=== PATIENT | male | born 1955 | race Caucasian/White ===

== ENCOUNTER 2021-03-15 06:08 | Observation (INO) ==
--- NOTE | 2021-03-02 09:08 | PAT Medication Instructions ---
Medication Instructions Date of Service March 02, 2021 Home Medications Medication Instructions Recorded epinephrine 0.3 mg/0.3 mL 0.3 mg IM Q10M PRN #2 ea 02/23/20 injection, auto-injector buspirone 10 mg tablet 10 mg PO TID #90 tab 12/27/20 montelukast 10 mg tablet 10 mg PO QPM #30 tab 01/04/21 (Singulair) levalbuterol HCl 1.25 mg/3 mL 1.25 mg INH Q4H PRN #100 vial 02/09/21 solution for nebulization albuterol sulfate 90 mcg/actuation breath activated powder inhaler 2 puffs INH Q4H PRN atorvastatin 20 mg tablet 20 mg PO QPM lamotrigine 100 mg tablet (Lamictal) 100 mg PO HS lamotrigine 150 mg tablet (Lamictal) 150 mg PO QAM sildenafil 50 mg tablet (Viagra) 50 mg PO DAILY PRN tiotropium bromide 18 mcg capsule with inhalation device (Spiriva with HandiHaler) 1 cap INH QPM warfarin 5 mg tablet 5 mg PO QPM lamotrigine 25 mg tablet (Lamictal) 25 mg PO HS trazodone 50 mg tablet 50 mg PO HS PRN epinephrine 0.3 mg/0.3 mL injection, auto-injector 0.3 mg IM Q10M PRN buspirone 10 mg tablet 10 mg PO TID montelukast 10 mg tablet (Singulair) 10 mg PO QPM levalbuterol HCl 1.25 mg/3 mL solution for nebulization 1.25 mg INH Q4H PRN B.breve-L.acid-L.rham-S. thermophilus 3 billion cell chewable tablet 0.5 tab PO QAM cholecalciferol (vitamin D3) 10 mcg (400 unit) tablet (Vitamin D3) 1,600 unit PO QAM diclofenac sodium 1 % topical gel 2 g TOPICAL QID PRN nadolol 40 mg tablet 40 mg PO QDL valsartan 320 mg-hydrochlorothiazide 25 mg tablet (Diovan HCT) 1 tab PO QAM vitamin B complex 1 tab PO QAM Continue as directed epinephrine 0.3 mg/0.3 mL injection, auto-injector 0.3 mg IM Q10M PRN (if needed) ASK your prescriber and surgeon warfarin 5 mg tablet 5 mg PO QPM STOP taking 24 hours before surgery diclofenac sodium 1 % topical gel 2 g TOPICAL QID PRN DO NOT take the morning of surgery sildenafil 50 mg tablet (Viagra) 50 mg PO DAILY PRN B.breve-L.acid-L.rham-S. thermophilus 3 billion cell chewable tablet 0.5 tab PO QAM cholecalciferol (vitamin D3) 10 mcg (400 unit) tablet (Vitamin D3) 1,600 unit PO QAM valsartan 320 mg-hydrochlorothiazide 25 mg tablet (Diovan HCT) 1 tab PO QAM vitamin B complex 1 tab PO QAM Take morning of surgery With a small sip of water, OTHERWISE NOTHING TO EAT OR DRINK AFTER MIDNIGHT: albuterol sulfate 90 mcg/actuation breath activated powder inhaler 2 puffs INH Q4H PRN (use if needed; please bring rescue inhaler with you to hospital day of surgery if possible) lamotrigine 150 mg tablet (Lamictal) 150 mg PO QAM buspirone 10 mg tablet 10 mg PO TID levalbuterol HCl 1.25 mg/3 mL solution for nebulization 1.25 mg INH Q4H PRN (if needed) nadolol 40 mg tablet 40 mg PO QDL (take morning of surgery if still at home during scheduled time to take) Take evening before surgery albuterol sulfate 90 mcg/actuation breath activated powder inhaler 2 puffs INH Q4H PRN (if needed) atorvastatin 20 mg tablet 20 mg PO QPM lamotrigine 100 mg tablet (Lamictal) 100 mg PO HS sildenafil 50 mg tablet (Viagra) 50 mg PO DAILY PRN (if needed) tiotropium bromide 18 mcg capsule with inhalation device (Spiriva with HandiHaler) 1 cap INH QPM lamotrigine 25 mg tablet (Lamictal) 25 mg PO HS trazodone 50 mg tablet 50 mg PO HS PRN (if needed) buspirone 10 mg tablet 10 mg PO TID montelukast 10 mg tablet (Singulair) 10 mg PO QPM levalbuterol HCl 1.25 mg/3 mL solution for nebulization 1.25 mg INH Q4H PRN (if needed) Other Notes If you have any questions please call us at [phone] or [phone] or [phone] or [phone]
--- NOTE | 2021-03-02 11:29 | Anesthesiology Consultation ---
Date of Service March 02, 2021 Assessment & Plan (1) Encounter for pre-operative examination: - Vascular office visit (03/01/21): "Patient needs cervical spine surgery for symptomatic disease and has a known AAA.. CTA yesterday shows aneurysm measures around 5 cm (radiology calls it 5.1 cm, by my own measurements I get 4.8 cm).. His AAA is asymptomatic.. Given the severity of the symptoms of his cervical spine, I would proceed ahead with cervical spine surgery with Dr. Bliss.. I did explain to patient that there is some evidence that aneurysms can enlarge (and in rare cases even rupture) after major surgery.. But in this case with a 4.8 cm AAA there is nothing prohibitive for cervical spine surgery.. I will plan to see patient back for short interval f/u in 3 months with a repeat CTA to make sure there is no new significant growth in the post-op period" - COVID screening: Per assessment on 03/02: Travel screen negative, no known COVID-19 positive contacts or current COVID-19 related symptoms. Patient vaccinated. Surgeon arranging preop COVID testing. Awaiting results. - Check coags AM DOS (warfarin instructions per surgeon/prescriber) Chart Review Chart Review: Acceptable Risk for Surgery (pending surgeon-ordered PCP and cardiology clearances) and Patient seen in Pre Admission Testing Teaching & Discussion Pre-Anesthesia Teaching/Discussion Notes: Instructed NPO after midnight before surgery,except medications with 15 cc of water. Medication instructions provided according to the PAT guidelines. History Surgery Operation Date: 03/15/21 07:45 Proposed Procedures p C4-C6 Anterior Cervical Discectomy and Fusion, Spinal Cord Monitoring - Aj Bliss DO Height/Weight Height: 5 ft 11 in Weight: 82.1 kg Allergies Allergy/AdvReac Type Severity Reaction Status Date / Time latex Allergy Severe Respiratory Verified 03/01/21 11:56 distress (required vent) lisinopril Allergy Severe Facial Verified 03/01/21 11:56 swelling metoprolol Allergy Severe Facial and Verified 03/01/21 11:56 lip swelling nystatin Allergy Severe Hives Verified 03/01/21 11:56 midazolam [From Versed] AdvReac Severe does not Verified 03/01/21 11:56 want to take related to possible reaction w/epileps amoxicillin AdvReac Intermediate Elevated Verified 03/01/21 11:56 heart rate clavulanic acid AdvReac Intermediate Elevated Verified 03/01/21 11:56 heart rate morphine AdvReac Mild Anxious Verified 03/01/21 11:56 and "tearful" NSAIDS (Non-Steroidal AdvReac Unknown does take Verified 03/01/21 11:56 Anti-Inflamma d/t being on coumadin Medications Home Medications Medication Instructions Recorded Confirmed Last Taken albuterol sulfate 90 mcg/actuation 2 puffs INH Q4H PRN ea 05/13/19 03/01/21 Unknown breath activated powder inhaler atorvastatin 20 mg tablet 20 mg PO QPM 05/13/19 03/01/21 Unknown lamotrigine 100 mg tablet 100 mg PO HS 05/13/19 03/01/21 Unknown (Lamictal) lamotrigine 150 mg tablet 150 mg PO QAM 05/13/19 03/01/21 Unknown (Lamictal) sildenafil 50 mg tablet (Viagra) 50 mg PO DAILY PRN 05/13/19 03/01/21 Unknown tiotropium bromide 18 mcg capsule 1 cap INH QPM 05/13/19 03/01/21 Unknown with inhalation device (Spiriva with HandiHaler) warfarin 5 mg tablet 5 mg PO QPM 05/13/19 03/01/21 Unknown lamotrigine 25 mg tablet (Lamictal) 25 mg PO HS tab 09/07/19 03/01/21 Unknown trazodone 50 mg tablet 50 mg PO HS PRN 09/07/19 03/01/21 Unknown epinephrine 0.3 mg/0.3 mL 0.3 mg IM Q10M PRN #2 ea 02/23/20 03/01/21 Unknown injection, auto-injector buspirone 10 mg tablet 10 mg PO TID #90 tab 12/27/20 03/01/21 Unknown montelukast 10 mg tablet 10 mg PO QPM #30 tab 01/04/21 03/01/21 Unknown (Singulair) levalbuterol HCl 1.25 mg/3 mL 1.25 mg INH Q4H PRN #100 vial 02/09/21 03/01/21 Unknown solution for nebulization B.breve-L.acid-L.rham-S. 0.5 tab PO QAM 03/01/21 03/01/21 Unknown thermophilus 3 billion cell chewable tablet cholecalciferol (vitamin D3) 10 1,600 unit PO QAM 03/01/21 03/01/21 Unknown mcg (400 unit) tablet (Vitamin D3) diclofenac sodium 1 % topical gel 2 g TOPICAL QID PRN 03/01/21 03/01/21 Unknown nadolol 40 mg tablet 40 mg PO QDL 03/01/21 03/01/21 Unknown valsartan 320 1 tab PO QAM 03/01/21 03/01/21 Unknown mg-hydrochlorothiazide 25 mg tablet (Diovan HCT) vitamin B complex 1 tab PO QAM 03/01/21 03/01/21 Unknown Past Medical History Medical History Abdominal aortic aneurysm Anxiety Asthma Chronic back pain Degenerative disc disease Dyslipidemia History of COVID-19 Dx 08/2019 at [facility] per pt (per [facility] records, dx was asthma exacerbation 2/2 RSV infection> symptoms at time of SOB, tachycardia, fever, cough, fatigue. Was inpatient x ~2 days > symptoms resolved Hx of basal cell carcinoma Hypertension Osteoarthritis Paroxysmal A-fib Prostate cancer s/p prostatectomy Renal carcinoma s/p left nephrectomy Seizure disorder Epilepsy, last seizure ~2013, grand-mal/silent seizures, follows with Dr[facility] Yanes ([facility]) Spinal stenosis of cervical region Spinal stenosis of lumbar region Exercise / Class Metabolic Activity III < 4 Walking/Shop/Light housework (one FS (no CP, + SOB)) Past Family History Family History Father Prostate cancer Atrial fibrillation Hypertension Mother Bladder cancer Heart disease Hypertension Other No family history of adverse response to anesthesia Past Surgical History Surgical History H/O cervical spine surgery Cervical Fusion C2-C3 H/O radical prostatectomy H/O sinus surgery H/O Spinal surgery lumbar fusion T11-L5 History of carpal tunnel surgery R/L History of colonoscopy History of left radical nephrectomy Hx of basal cell carcinoma excision chest region Hx of tonsillectomy S/P appendectomy Past Anesthesia History No Hx of Anesthesia Complications and No Family Hx of Anesthesia Complications History of PONV No Hx of PONV and No Hx of Motion Sickness Social History Smoking Status: Former smoker tobacco type: cigarettes Do You Dip or Chew Tobacco: No Smoking End Date: Quit 2006 Hx Alcohol Use: No Hx Substance Use: Yes (recreational) substance use type: marijuana (socially/rarely) Review of Systems Patient denies chest pain, shortness of breath, fever, chills, cough, wheezing, palpitations. Physical Exam Vital Signs VITALS BP 113/86 P 65 TEMP 98.6 SP02 97%RA RESP 16 PHYSICAL Decreased cervical extension range of motion. Full TMJ range of motion. TMD 4 finger breaths Mallampati Score 1 Dentition: left upper side tooth with recent break > "spacer" placed/temporary repair (no further dental work planned until after surgery) Lungs: clear throughout to auscultation Cardiac: regular rate and rhythm, no murmurs noted Spine: normal Carotid arteries: negative bruit Extremities: no edema Lab Results Anesthesia Preop Results Results Anesthesia Widget: WBC 8.06 K/uL (4.8-10.8) 03/02/21 Hgb 15.8 g/dL (14.0-18.0) 03/02/21 Hct 44.2 % (42-52) 03/02/21 Plt 268 K/uL (130-400) 03/02/21 Na 135 mmol/L (136-145) L 03/02/21 K 3.4 mmol/L (3.5-5.1) L 03/02/21 Cl 102 mmol/L (98-107) 03/02/21 CO2 27 mmol/L (21-32) 03/02/21 BUN 12 mg/dl (7-18) 03/02/21 Creat 0.80 mg/dl (0.6-1.4) 03/02/21 Glucose Level 107 mg/dl (70-99) H 03/02/21 PT 16.3 Seconds (9.0-12.0) H 03/02/21 PTT 37.2 Seconds (21.0-31.0) H 03/02/21 INR 1.7 (0.9-1.1) H 03/02/21 Urine Color Yellow 03/02/21 Urine Appearance Clear (Clear) 03/02/21 Urine pH 7.0 (4.5-7.5) 03/02/21 Urine Specific [place] 1.017 (1.000-1.030) 03/02/21 Urine Protein Negative (Negative) 03/02/21 Urine Glucose (UA) Negative (Negative) 03/02/21 Urine Ketones Negative (Negative) 03/02/21 Urine Blood Negative (Negative) 03/02/21 Urine Nitrite Negative (Negative) 03/02/21 Urine Bilirubin Negative (Negative) 03/02/21 Urine Urobilinogen Negative (Negative) 03/02/21 Urine Leukocyte Esterase Negative (Negative) 03/02/21 Blood Type O Positive 03/02/21 Antibody Screen NEGATIVE 03/02/21 Testing Electrocardiogram Date: 01/09/21 A. fib at 74 bpm. Poor data quality. Chest X-Ray Date: 01/09/21 Findings: + NAD Echocardiogram Date: 09/05/20 EF 60 to 65%. No regional motion abnormalities. Mild concentric LVH. No significant valvular disease. Other Testing CTA Abdomen/pelvis (03/01/21): Infrarenal abdominal aortic aneurysm measuring up to 5.1 cm. No evidence of rupture. Estimated to be closer to 4.8cm per vascular physician's personal review*
--- NOTE | 2021-03-14 12:10 | History & Physical Report ---
Date of Service March 14, 2021 Assessment & Plan (1) Cervical radiculopathy due to degenerative joint disease of spine: Plan: Patient has evidence of severe neural foraminal disease at C4-5 C5-6 consistent with his arm pain and weakness. In light of his decline we are recommending urgent anterior cervical discectomy and fusion C4-C6. This should hopefully help his pain and prevent permanent neurologic deficit. He does understand he may have a component of permanent weakness. History of Present Illness Chief Complaint: Neck and arm pain with weakness Primary Care Provider: Kimberlee Tyler DO This is a 66-year-old male presents severe cervical radiculopathy and progressive arm pain and weakness. Found extensive course of nonoperative care noticing a significant decline and requires urgent surgery. Allergies Allergy/AdvReac Type Severity Reaction Status Date / Time latex Allergy Severe Respiratory Verified 03/05/21 15:31 distress (required vent) lisinopril Allergy Severe Facial Verified 03/05/21 15:31 swelling metoprolol Allergy Severe Facial and Verified 03/05/21 15:31 lip swelling nystatin Allergy Severe Hives Verified 03/05/21 15:31 midazolam [From Versed] AdvReac Severe does not Verified 03/05/21 15:31 want to take related to possible reaction w/epileps amoxicillin AdvReac Intermediate Elevated Verified 03/05/21 15:31 heart rate clavulanic acid AdvReac Intermediate Elevated Verified 03/05/21 15:31 heart rate morphine AdvReac Mild Anxious Verified 03/05/21 15:31 and "tearful" NSAIDS (Non-Steroidal AdvReac Unknown does take Verified 03/05/21 15:31 Anti-Inflamma d/t being on coumadin Home Medications Medication Instructions Recorded Confirmed Type albuterol sulfate 90 mcg/actuation 2 puffs INH Q4H PRN ea 05/13/19 03/05/21 History breath activated powder inhaler atorvastatin 20 mg tablet 20 mg PO QPM 05/13/19 03/05/21 History lamotrigine 100 mg tablet 100 mg PO HS 05/13/19 03/05/21 History (Lamictal) lamotrigine 150 mg tablet 150 mg PO QAM 05/13/19 03/05/21 History (Lamictal) sildenafil 50 mg tablet (Viagra) 50 mg PO DAILY PRN 05/13/19 03/05/21 History tiotropium bromide 18 mcg capsule 1 cap INH QPM 05/13/19 03/05/21 History with inhalation device (Spiriva with HandiHaler) warfarin 5 mg tablet 5 mg PO QPM 05/13/19 03/05/21 History lamotrigine 25 mg tablet (Lamictal) 25 mg PO HS tab 09/07/19 03/05/21 History trazodone 50 mg tablet 50 mg PO HS PRN 09/07/19 03/05/21 History epinephrine 0.3 mg/0.3 mL 0.3 mg IM Q10M PRN #2 ea 02/23/20 03/05/21 Rx injection, auto-injector montelukast 10 mg tablet 10 mg PO QPM #30 tab 01/04/21 03/05/21 Rx (Singulair) levalbuterol HCl 1.25 mg/3 mL 1.25 mg INH Q4H PRN #100 vial 02/09/21 03/05/21 Rx solution for nebulization B.breve-L.acid-L.rham-S. 0.5 tab PO QAM 03/01/21 03/05/21 History thermophilus 3 billion cell chewable tablet cholecalciferol (vitamin D3) 10 1,600 unit PO QAM 03/01/21 03/05/21 History mcg (400 unit) tablet (Vitamin D3) diclofenac sodium 1 % topical gel 2 g TOPICAL QID PRN 03/01/21 03/05/21 History nadolol 40 mg tablet 40 mg PO QDL 03/01/21 03/05/21 History valsartan 320 1 tab PO QAM 03/01/21 03/05/21 History mg-hydrochlorothiazide 25 mg tablet (Diovan HCT) vitamin B complex 1 tab PO QAM 03/01/21 03/05/21 History buspirone 10 mg tablet 10 mg PO TID #90 tab 03/12/21 Rx Past Med/Surg History Medical History Abdominal aortic aneurysm Anxiety Asthma Chronic back pain Degenerative disc disease Dyslipidemia History of COVID-19 Dx 08/2019 at [facility] per pt (per [facility] records, dx was asthma exacerbation 2/2 RSV infection> symptoms at time of SOB, tachycardia, fever, cough, fatigue. Was inpatient x ~2 days > symptoms resolved Hx of basal cell carcinoma Hypertension Osteoarthritis Paroxysmal A-fib Prostate cancer s/p prostatectomy Renal carcinoma s/p left nephrectomy Seizure disorder Epilepsy, last seizure ~2013, grand-mal/silent seizures, follows with Dr. Yanes ([facility]) Spinal stenosis of cervical region Spinal stenosis of lumbar region Surgical History H/O cervical spine surgery Cervical Fusion C2-C3 H/O radical prostatectomy H/O sinus surgery H/O Spinal surgery lumbar fusion T11-L5 History of carpal tunnel surgery R/L History of colonoscopy History of left radical nephrectomy Hx of basal cell carcinoma excision chest region Hx of tonsillectomy S/P appendectomy Family History Father Prostate cancer Atrial fibrillation Hypertension Mother Bladder cancer Heart disease Hypertension Other No family history of adverse response to anesthesia Social History Smoking Status: Former smoker Tobacco Type: Cigarettes Years Smoked: 40; Second Hand Exposure: No; Hx Alcohol Use: No Hx Substance Use: Yes (recreational) Preferred Language: Tajik Communication Ability: Effective Water Plumber Required: No Beliefs That Will Affect Care: None marital status: Life Partner Current Living Situation: Significant Other current occupational status: retired other: Retired RN Feels Safe at Home: Yes Assistive Devices: Cane and Nebulizer Physical Exam Physical Exam: Patient is alert and oriented Heart regular in rhythm Lungs clear to auscultation Left biceps demonstrates a 4-/5 compared to 5 5 on the right. There is sensory deficits. Marked Spurling's to the left.
[~2021-03-15 06:08] MED LIST: ACETAMINOPHEN 500 MG TAB PO SCH; CeleBREX 200 MG CAP PO SCH; GABAPENTIN 300 MG CAP PO SCH; LR 15ML/HR IV SCH; ceFAZolin 2000MG 2,000 MG/15 ML SYR IV SCH
[2021-03-15] MEDS ORDERED: fentaNYL citrate 100 MCG/2 ML VIAL ONE ×3 (07:03→08:30)
[2021-03-15] MEDS ORDERED: MIDAZOLAM HCL 1 MG/ML 2ML VIAL ONE (07:03)
--- NOTE | 2021-03-15 07:28 | History & Physical Bridge Note ---
Date of Service March 15, 2021 History & Physical Bridge Note I have examined the patient, reviewed the History & Physical and in the interval since the performance of the History & Physical I have noted the following changes of clinical significance: no changes noted
[2021-03-15 07:56] LABS: INR 1.1 (0.9-1.1); Partial Thromboplastin Ratio 1.2; Partial Thromboplastin Time 31.4 Seconds (21.0-31.0); Prothrombin Time 11.4 Seconds (9.0-12.0)
[2021-03-15] MEDS ORDERED: ATROPINE SULFATE 0.1 MG/ML 10ML SYR IV PRN (08:00)
[2021-03-15] MEDS ORDERED: ONDANSETRON INJ 2 MG/ML 2 ML VIAL IV PRN ×2 (08:00→11:31)
[2021-03-15] MEDS ORDERED: LABETALOL HCL IV 5 MG/ML 20ML IV PRN (08:03)
[2021-03-15] MEDS ORDERED: SUCCINYLCHOLINE CHLORIDE 20 MG/ML 10 ML VIAL IV ONE (08:11)
[2021-03-15] MEDS ORDERED: LIDOCAINE 2% 2 ML VIAL/AMP(20MG/ML) INFIL ONE (08:11)
[2021-03-15] MEDS ORDERED: DEXAMETHASONE SOD INJ 4 MG/ML VIAL ONE (08:11)
[2021-03-15] MEDS ORDERED: PROPOFOL IV EMULSION 10 MG/ML 20 ML VIAL IV ONE (08:11)
[2021-03-15] MEDS ORDERED: ROCURONIUM BROMIDE 10 MG/ML 5 ML VIAL IV ONE (08:11)
[2021-03-15] MEDS ORDERED: ONDANSETRON INJ 2 MG/ML 2 ML VIAL ONE ×2 (08:11→09:03)
[2021-03-15] MEDS ORDERED: FLOSEAL HEMOSTATIC MATRIX 10ML TOP ONE (08:22)
[2021-03-15] MEDS ORDERED: ePHEDrine sulfate 50 MG/ML AMP ONE (08:54)
[2021-03-15] MEDS ORDERED: GLYCOPYRROLATE 0.2 MG/ML VIAL ONE (09:16)
[2021-03-15] MEDS ORDERED: NEOSTIGMINE METHYLSULFATE 1 MG/ML 10ML VIAL ONE (09:16)
--- NOTE | 2021-03-15 09:21 | Operative Report ---
Post Operative Report Pre & Post Diagnosis Operation Date: 03/15/21 07:45 Pre-Op Diagnosis: Spinal Stenosis Cervical Region Post-Op Diagnosis: Spinal Stenosis Cervical Region I identified the patient and participated in the time-out.: Yes Procedure Operation Date: 03/15/21 07:45 Actual Procedures #1 intracervical discectomy with bilateral foraminotomies C4-5 and C5-6. #2 anterior arthrodesis C4-5 and C5-6. #3 placement of 6 mm spiral cage filled with I factor at C4-5 and C5-6. #4 application of gonzalez plate and screws from C4-C6. Surgeon Aj Bliss, Facility Designer Enid Todd Estimated Blood Loss 10 Findings Consistent with Post-Op Diagnosis Specimens None Indications This is a 66-year-old male known to me the presents above-mentioned diagnosis after failing course of nonoperative care is here for the above-mentioned procedure. Description of Procedure Patient was met with identified informed consent obtained. Patient was then taken to the operative suite underwent ablation placed in supine position Medardo table with head Rubio head golf professional. All bony prominences well-padded eyes inspected to ensure no external pressure placed upon them. This point the anterior cervical spine was prepped and draped in a sterile fashion. The assistance of fluoroscopy identified the C5 vertebral body and a transverse incision was placed along the right anterior aspect of the cervical spinal lines region. Blunt dissection with the assistance of bipolar electrocautery performed down to and exposing the anterior cervical spine from C4 to see six. Self-retaining retractors placed. Informed complete discectomy of C4-C5 out to the uncovertebral's bilaterally. [place] distracting pins were utilized to assist in visualization. Removed all posterior annular fibers longitudinal ligament bilateral foraminotomies performed. The endplates were then burred to subcortical bleeding bone and a 6 mm spiral cage filled with I factor tapped in position. Then proceeded to C5-C6. Again complete discectomy performed out to the uncovertebral joints bilaterally. [place] distracting pins again utilized to assist in visualization. Removed all posterior annular fibers longitudinal ligament bilateral foraminotomies performed. Endplates burred to subcortically bone and again a 6 mm Spira cage filled with I factor tapped in position. All distracting apparatus was removed anterior osteophytes burred to a smooth cortical surface and a five complete and screws applied with the assistance of fluoroscopy. The incision was then copiously irrigated explored to ensure no damage to surrounding structures or remaining bleeding. 10 round ALONSO drain inserted. The incision was then closed with 2 Vicryl in a fashion of 4 Monocryl for final skin closure. Steri-Strip sterile dressings placed. Patient will continue PACU stable condition. Please note spinal cord monitoring was last that the procedure no changes noted. Lastly Enid Todd was present at the entire procedure The patient positioning complex portions of the surgery and final skin closure. I attest to the content of the Intraoperative Record and any orders documented therein. Any exceptions are noted below.
[2021-03-15] MEDS: HYDROmorphone INJ 1 MG/ML SYRINGE IV PRN ×2 (09:53→09:58)
--- NOTE | 2021-03-15 10:24 | Fluoroscopy Report ---
FL cervical 2-3V CLINICAL HISTORY: C4-6 ACDF COMPARISON STUDY: None. FLUOROSCOPY TIME: 11 seconds. FLUOROSCOPIC IMAGES: 2 FINDINGS: Fluoroscopy was provided during C4-C6 anterior discectomy and fusion. Hardware is intact. P revious C3-C4 fusion is noted. Endotracheal tube is partially imaged. A linear radiodensity shown wit hin the operative bed on the initial image is not present on the subsequent image. IMPRESSION: Fluoroscopy provided during C4-C6 anterior discectomy and fusion. ACT 112: Negative or not required by law. Electronically signed by: Bharath Morris M.D. 03/15/2021 10:22 AM
--- NOTE | 2021-03-15 10:30 | Anesthesiology Progress Note ---
Date of Service March 15, 2021 Anesthesia Post Procedure Vital Signs Vital Signs: Temp Pulse Pulse Resp BP BP Pulse Ox 03/15/21 10:20 56 L 15 139/88 100 03/15/21 10:10 54 L 14 138/86 100 03/15/21 10:00 58 L 15 147/95 H 100 03/15/21 09:50 67 17 142/94 H 99 03/15/21 09:40 64 12 148/95 H 100 03/15/21 09:32 36.0 C L 76 20 163/99 H 99 03/15/21 06:39 36.7 C 78 20 161/100 H 98 Pain Intensity Neck: Pain Intensity: 4 Transfer of Care Handoff Completed per policy Notes Mental Status: alert / awake / arousable Patient Amnestic to Procedure: Yes Nausea / Vomiting: adequately controlled Pain: adequately controlled Airway Patency, RR, SpO2: stable & adequate BP & HR: stable & adequate Hydration State: stable & adequate Anesthetic Complications: no major complications apparent
[2021-03-15] MEDS ORDERED: ALUMINUM/MAGNESIUM SUSP 30 ML UDC PO PRN (11:31)
[2021-03-15] MEDS ORDERED: dexAMETHasone 8 MG in SYRINGE 0 ML IV PRN (11:31)
[2021-03-15] MEDS ORDERED: RACEPINEPHRINE 2.25% NEBU SOLN 0.5 ML VIAL INH PRN (11:31)
[2021-03-15] MEDS ORDERED: DO NOT ADMINISTER FLU VACCINE PRN (11:31)
[2021-03-15] MEDS ORDERED: HYDROmorphone INJ 0.5 MG/0.5 ML SYR IV PRN (11:31)
[2021-03-15] MEDS ORDERED: SOD PHOSPHATE/SOD BIPHOSPHATE ENEMA 132 ML BTL PR PRN (11:31)
[2021-03-15] MEDS ORDERED: bisacodyL 10 MG SUPP PR PRN (11:31)
[2021-03-15] MEDS ORDERED: METOCLOPRAMIDE HCL INJ 5 MG/ML 2 ML VIAL IV PRN (11:31)
[2021-03-15] MEDS ORDERED: LORazepam 0.5 MG TAB PO PRN (11:31)
[2021-03-15] MEDS ORDERED: ACETAMINOPHEN 1,000 MG/100 ML VIAL IV PRN (11:31)
[2021-03-15] MEDS ORDERED: hydrOXYzine HCl 25 MG TAB PO PRN (11:31)
[2021-03-15] MEDS ORDERED: LORazepam 0.5 MG/1 ML VIAL IV PRN (11:31)
[2021-03-15] MEDS ORDERED: HYDROmorphone INJ 1 MG/ML SYRINGE IV PRN (11:31)
[2021-03-15] MEDS ORDERED: FAMOTIDINE 20 MG TAB PO PRN (11:31)
[2021-03-15] MEDS ORDERED: traZODone HCL 50 MG TAB PO PRN (11:31)
[2021-03-15] MEDS ORDERED: nadoloL 40 MG TAB PO SCH (11:31)
[2021-03-15] MEDS ORDERED: diphenhydrAMINE Capsule 25 MG CAP PO PRN (11:31)
[2021-03-15] MEDS ORDERED: DO NOT ADMINISTER PNEUMOCOCCAL VACCINE PRN (11:31)
[2021-03-15] MEDS ORDERED: PROMETHAZINE HCL 12.5 MG in SODIUM CHLORIDE 0.9% 50 ML IV PRN (11:31)
[2021-03-15] MEDS ORDERED: ONDANSETRON 4 MG OD TAB PO PRN (11:31)
[2021-03-15] MEDS ORDERED: NALOXONE HCL 0.4 MG/1 ML VIAL/CARP IV PRN (11:31)
[2021-03-15] MEDS ORDERED: traMADol HCL 50 MG TABLET PO PRN (11:31)
[2021-03-15] MEDS ORDERED: ACETAMINOPHEN 500 MG TAB PO PRN (11:31)
[2021-03-15] MEDS ORDERED: MAGNESIUM HYDROXIDE SUSP 30 ML UDC PO PRN (11:31)
[2021-03-15] MEDS ORDERED: ALBUTEROL HFA 8 GM INHALER INH PRN (11:47)
[2021-03-15] MEDS: LACTATED RINGER'S 1,000 ML IV SCH (12:33)
[2021-03-15] MEDS: LEVALBUTEROL HCL 1.25 MG/3 ML NEB INH PRN ×2 (12:52→22:42)
[2021-03-15] MEDS: oxyCODONE HCL IR 5 MG TAB (IMMEDIATE RELEASE) PO PRN ×2 (13:46→21:09)
[2021-03-15] MEDS: busPIRone 5 MG TAB PO SCH ×2 (13:47→21:05)
[2021-03-15] MEDS: ceFAZolin 2000MG 2,000 MG/15 ML SYR IV SCH ×2 (16:32→23:30)
--- NOTE | 2021-03-15 17:11 | Hospitalist Consultation ---
Date of Consultation March 15, 2021 Assessment & Plan (1) Cervical radiculopathy due to degenerative joint disease of spine: Status post C4-5 anterior cervical discectomy and fusion (2) Pulmonary emphysema: Patient was prehospital Xopenex ordered did receive steroids intraoperatively for his neck which would also help his lungs maria elena on Singulair and Umeclidinium (3) Paroxysmal atrial fibrillation with rapid ventricular response: Typically on nadolol usually anticoagulated with warfarin which appropriately held for surgery (4) Hypertension: Nadolol plus Diovan HCT (5) Dyslipidemia: (6) Seizure disorder: Maria Elena on Lamictal we will check a level in the morning History of Present Illness Attending Physician: Aj Bliss, History of Present Illness Patient seen status post C4 6 anterior cervical discectomy and fusion by Dr. Anthony Bliss on 03/15/2021. Patient has a medical past history including renal cell carcinoma and unilateral nephrectomy, hyperthyroidism, paroxysmal atrial fibrillation on chronic anticoagulation prostate cancer with radical prostatectomy, dyslipidemia, hypertension, seizure disorder and asthma All seemingly stable at this time except the patient did need a postoperative nebulizer treatment Allergies Allergy/AdvReac Type Severity Reaction Status Date / Time latex Allergy Severe Respiratory Verified 03/15/21 07:03 distress (required vent) lisinopril Allergy Severe Facial Verified 03/15/21 07:03 swelling metoprolol Allergy Severe Facial and Verified 03/15/21 07:03 lip swelling nystatin Allergy Severe Hives Verified 03/15/21 07:03 midazolam [From Versed] AdvReac Severe does not Verified 03/15/21 07:03 want to take related to possible reaction w/epileps amoxicillin AdvReac Intermediate Elevated Verified 03/15/21 07:03 heart rate clavulanic acid AdvReac Intermediate Elevated Verified 03/15/21 07:03 heart rate morphine AdvReac Mild Anxious Verified 03/15/21 07:03 and "tearful" NSAIDS (Non-Steroidal AdvReac Unknown does take Verified 03/15/21 07:03 Anti-Inflamma d/t being on coumadin Home Medications Medication Instructions Recorded Confirmed Type albuterol sulfate 90 mcg/actuation 2 puffs INH Q4H PRN ea 05/13/19 03/15/21 History breath activated powder inhaler atorvastatin 20 mg tablet 20 mg PO QPM 05/13/19 03/15/21 History lamotrigine 100 mg tablet 100 mg PO HS 10/24/19 08/26/21 History (Lamictal) lamotrigine 150 mg tablet 150 mg PO QAM 05/13/19 03/15/21 History (Lamictal) sildenafil 50 mg tablet (Viagra) 50 mg PO DAILY PRN 05/13/19 03/15/21 History tiotropium bromide 18 mcg capsule 1 cap INH QPM 05/13/19 03/15/21 History with inhalation device (Spiriva with HandiHaler) warfarin 5 mg tablet 5 mg PO QPM 05/13/19 03/15/21 History lamotrigine 25 mg tablet (Lamictal) 25 mg PO HS tab 09/07/19 03/15/21 History trazodone 50 mg tablet 50 mg PO HS PRN 09/07/19 03/15/21 History epinephrine 0.3 mg/0.3 mL 0.3 mg IM Q10M PRN #2 ea 02/23/20 03/15/21 Rx injection, auto-injector montelukast 10 mg tablet 10 mg PO QPM #30 tab 01/04/21 03/15/21 Rx (Singulair) levalbuterol HCl 1.25 mg/3 mL 1.25 mg INH Q4H PRN #100 vial 02/09/21 03/15/21 Rx solution for nebulization B.breve-L.acid-L.rham-S. 0.5 tab PO QAM 03/01/21 03/15/21 History thermophilus 3 billion cell chewable tablet cholecalciferol (vitamin D3) 10 1,600 unit PO QAM 03/01/21 03/15/21 History mcg (400 unit) tablet (Vitamin D3) diclofenac sodium 1 % topical gel 2 g TOPICAL QID PRN 03/01/21 03/15/21 History nadolol 40 mg tablet 40 mg PO QDL 03/01/21 03/15/21 History valsartan 320 1 tab PO QAM 03/01/21 03/15/21 History mg-hydrochlorothiazide 25 mg tablet (Diovan HCT) vitamin B complex 1 tab PO QAM 03/01/21 03/15/21 History buspirone 10 mg tablet 10 mg PO TID #90 tab 03/12/21 03/15/21 Rx Patient History Medical History Abdominal aortic aneurysm Anxiety Asthma Chronic back pain Degenerative disc disease Dyslipidemia History of COVID-19 Dx 08/2019 at [facility] per pt (per [facility] records, dx was asthma exacerbation 2/2 RSV infection> symptoms at time of SOB, tachycardia, fever, cough, fatigue. Was inpatient x ~2 days > symptoms resolved Hx of basal cell carcinoma Hypertension Osteoarthritis Paroxysmal A-fib Prostate cancer s/p prostatectomy Renal carcinoma s/p left nephrectomy Seizure disorder Epilepsy, last seizure ~2013, grand-mal/silent seizures, follows with Dr. Yanes ([facility]) Spinal stenosis of cervical region Spinal stenosis of lumbar region Surgical History H/O cervical spine surgery Cervical Fusion C2-C3 H/O radical prostatectomy H/O sinus surgery H/O Spinal surgery lumbar fusion T11-L5 History of carpal tunnel surgery R/L History of colonoscopy History of left radical nephrectomy Hx of basal cell carcinoma excision chest region Hx of tonsillectomy S/P appendectomy Family History Father Prostate cancer Atrial fibrillation Hypertension Mother Bladder cancer Heart disease Hypertension Other No family history of adverse response to anesthesia Social History Smoking Status: Former smoker Tobacco Type: Cigarettes Years Smoked: 40; Smoking End Date: Quit 2006; Second Hand Exposure: No; Do You Dip or Chew Tobacco: No; Tobacco Cessation Education Requested by Patient: No Hx Alcohol Use: No Hx Substance Use: Yes (recreational) Preferred Language: Sinhala Communication Ability: Effective Edge Stripper Required: No Beliefs That Will Affect Care: None marital status: Life Partner Current Living Situation: Significant Other current occupational status: retired Other Information That Helps Us Care for You: 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 Safe at Home: Yes Safety Concerns: Feels Safe At This Time Assistive Devices: Cane and Nebulizer Assistive Devices Comment: cane prn Review of Systems Review of Systems: Mild distress and fatigue no headache, no visual changes You did have some recurrence of pain no speech or swallowing issues no chest pain, pressure or palpitations no shortness of breath, cough or wheezes no abdominal pain, nausea or vomiting, diarrhea or constipation no dysuria, hematuria or frequency no focal joint pain or swelling no back pain, CVA tenderness or radicular pain no bruising, bleeding or rashes Preoperative left-sided weakness is present no complaints of anxiety or depression.. Physical Exam Physical Exam: The patient appeared well nourished and normally developed. Vital signs as documented. Head exam is normocephalic atraumatic Neck is with a rigid cervical collar in place with a drain to ALONSO coming out of his neck Lungs are clear to auscultation although he recently had a nebulizer treatment, no focal loss of breath sounds Cardiac exam, Rhythm is regular.. No murmurs, rubs or gallops. Abdominal exam reveals normal bowel sounds, soft non tender, no masses Extremities are nonedematous and both pedal pulses are present Neurologic exam is alert and oriented, patient has had left upper arm weakness which is still present. Slight 24/5 weak compared to the right which is normal and full strength Skin is without bruises or rashes Psychologically is without concerns for anxiety or depression Results & Data Results & Data ([facility]) Vital Signs (Past 12 Hours) Vital Signs Temp Pulse Pulse Resp BP BP Pulse Ox 03/15/21 15:25 98.2 F 57 L 18 152/85 H 95 03/15/21 14:49 61 18 94 03/15/21 14:15 98.2 F 60 18 144/88 H 93 03/15/21 13:15 65 18 154/100 H 97 03/15/21 12:52 67 16 95 03/15/21 12:15 98.2 F 61 18 149/93 H 94 03/15/21 11:53 58 L 16 143/88 H 95 03/15/21 11:31 97.7 F 63 18 139/88 93 03/15/21 11:22 61 18 96 03/15/21 11:10 55 L 16 131/84 95 03/15/21 11:00 53 L 18 137/88 94 03/15/21 10:50 58 L 12 144/89 H 94 03/15/21 10:40 60 12 142/96 H 96 03/15/21 10:30 97.5 F L 58 L 20 135/85 100 03/15/21 10:20 56 L 15 139/88 100 03/15/21 10:10 54 L 14 138/86 100 03/15/21 10:00 58 L 15 147/95 H 100 03/15/21 09:50 67 17 142/94 H 99 03/15/21 09:40 64 12 148/95 H 100 03/15/21 09:32 96.8 F L 76 20 163/99 H 99 03/15/21 06:39 98.1 F 78 20 161/100 H 98 PG Care Time/CCT Total # of Minutes Spent Total Time Spent with Patient: Total time spent is greater than 50% in coordin ation of care (as documented) at patient's floor/unit and/or counseling patient: Coding Level of Care Code 93213 Inpt Consult Level 3 Diagnoses Cervical radiculopathy due to degenerative joint disease of spine M47.22 Pulmonary emphysema J43.9 Paroxysmal atrial fibrillation with rapid ventricular response I48.0 Hypertension I10 Dyslipidemia E78.5 Seizure disorder G40.909
[2021-03-15] MEDS ORDERED: DOCUSATE SODIUM/SENNA 50/8.6MG TAB PO SCH (21:00)
[2021-03-15] MEDS ORDERED: ATORVASTATIN 20 MG TAB PO SCH (21:00)
[2021-03-15] MEDS ORDERED: UMECLIDINIUM BROMIDE 62.5MCG/BLISTER 7 PUFFS/INHALER INH SCH (21:00)
[2021-03-15] MEDS ORDERED: lamoTRIgine 25 MG TAB PO SCH (21:00)
[2021-03-15] MEDS ORDERED: lamoTRIgine 100 MG TAB PO SCH (21:00)
[2021-03-15] MEDS ORDERED: MONTELUKAST SODIUM 10 MG TABLET PO SCH (21:00)
[2021-03-16] MEDS: LACTATED RINGER'S 1,000 ML IV SCH (01:21)
[2021-03-16] MEDS: oxyCODONE HCL IR 5 MG TAB (IMMEDIATE RELEASE) PO PRN ×2 (02:59→09:27)
[2021-03-16] MEDS ORDERED: POLYETHYLENE (MIRALAX) 17 GM PACK PO SCH (06:00)
[2021-03-16] MEDS: busPIRone 5 MG TAB PO SCH (07:57)
[2021-03-16] MEDS: LEVALBUTEROL HCL 1.25 MG/3 ML NEB INH PRN (08:01)
--- NOTE | 2021-03-16 08:58 | Discharge Summary ---
Date of Service March 16, 2021 Admission HPI Per Admitting Provider This is a 66-year-old male presents severe cervical radiculopathy and progressive arm pain and weakness. Found extensive course of nonoperative care noticing a significant decline and requires urgent surgery. Principal Diagnosis Cervical spinal stenosis with radiculopathy Discharge Data Allergies Allergy/AdvReac Type Severity Reaction Status Date / Time latex Allergy Severe Respiratory Verified 03/15/21 07:03 distress (required vent) lisinopril Allergy Severe Facial Verified 03/15/21 07:03 swelling metoprolol Allergy Severe Facial and Verified 03/15/21 07:03 lip swelling nystatin Allergy Severe Hives Verified 03/15/21 07:03 midazolam [From Versed] AdvReac Severe does not Verified 03/15/21 07:03 want to take related to possible reaction w/epileps amoxicillin AdvReac Intermediate Elevated Verified 03/15/21 07:03 heart rate clavulanic acid AdvReac Intermediate Elevated Verified 03/15/21 07:03 heart rate morphine AdvReac Mild Anxious Verified 03/15/21 07:03 and "tearful" NSAIDS (Non-Steroidal AdvReac Unknown does take Verified 03/15/21 07:03 Anti-Inflamma d/t being on coumadin Consultations 03/15/21 11:31 Consult Hospitalist Routine Procedures Performed Operation Date: 03/15/21 07:45 Actual Procedures p C4-C6 Anterior Cervical Discectomy and Fusion, Spinal Cord Monitoring(Not Applicable) - Aj Bliss DO Ordered Studies 03/15/21 07:45 FL cervical 2-3V Routine Hospital Course (1) Cervical radiculopathy due to degenerative joint disease of spine: Patient 1 anterior cervical discectomy and fusion tolerated this well was taken to orthopedic for postop labor postop day 1 he was up ambulating swallowing well no hoarseness. ALONSO drain decreasing probably. Excellent strength testing. Subsequent discharge home. Discharge orders instructions were on the chart for further review. Total Time Total Time Spent Total Time Spent (In Minutes): 20 minutes Discharge Plan Discharge Items Patient Disposition: Home - Self-Care Reason For Visit: Spinal Stenosis Cervical Region Discharge Diagnosis: Cervical spinal stenosis with radiculopathy Activity: As commented below Non-emergency contact: Primary Care Provider Call non-emergency contact if: you have any medication questions Follow-up/Referrals: Kimberlee Tyler DO [Primary Care Provider] - Diet: Regular Addtl Attending Provider Instructions: ACTIVITY RECOMMENDATIONS: SELF CARE INSTRUCTIONS AFTER CERVICAL FUSIONS 1. No smoking. Smoking drastically decreases the chance of a solid fusion. 2. No bending, lifting more than 5 pounds, or twisting (roll like a log when turning in bed). 3. You may shower 3 days after surgery. Thoroughly dry wound. Do not soak in the tub. 4. Cervical collar: Must be worn at all times including sleeping. You may remove the brace only to bath, eat and if you are sitting in a recliner. 5. Please walk as much as you can for exercise. Gradually increase the distance that you walk as your endurance increases. SPECIAL CARE INSTRUCTIONS: VERY IMPORTANT TO READ AND REVIEW A. Do not take any anti-inflammatory medications (i.e. Indocin, Advil, Aspirin, Naprosyn, Aleve, Motrin, etc.) as these may inhibit the chance of a solid fusion. Tylenol is okay to take. B. Your surgical incision has been closed with a cosmetic suture under the skin that will dissolve in about 6 weeks. In 14 days, you can use a pair of clean scissors and cut the suture that is left outside of the skin at the ends of your incision. C. Complications are uncommon, but please contact us if you have any signs or symptoms of: 1. wound infection (fever higher than 102.5 degrees F, redness, separation of wound, drainage, or increasing pain from the incision) 2. blood clots in legs (pain, swelling, redness and warmth in legs) 3. urinary tract infection (fever higher than 102.5 degrees, burning upon urination or increased frequency of urination) 4. nerve problems (inability to walk on your toes or heels, numbness, loss of bowel or bladder control) 5. any other symptoms that concern you. D. Please call the office at if you have any concerns or questions about your operation or recovery. MANAGING PAIN AFTER SPINAL SURGERY 1. Narcotic medication is intended for short-term use and will be provided for surgical pain. Surgical pain usually lasts for a period of 4-6 weeks. Narcotic medication includes Percocet, Vicodin, Darvocet, Tylenol #3 or Lortab. 2. Longer-term pain is more appropriately treated with non-narcotic medication such as Tylenol ES. 3. Muscle spasm is not appropriately treated with narcotics. Muscle relaxers such as Soma, Flexeril or Skelaxin can be used along with Tylenol ES. 4. Remember that we all live with some "aches and pains". This is not unusual or uncommon after an injury or as we get older. 5. We will provide appropriate medication within the normal guidelines of their prescribed use. We will also be very cautious and aware of potential abuse and extended duration of patients' medication needs. 6. Please allow 2-3 days to process refills. Prescriptions will not be mailed but must be picked up at the office. FOLLOW UP VISIT: Keep your scheduled follow-up appointment. Any questions, please call the office at . Pending Studies at Discharge: No Stand-Alone Forms: [facility] [place] [employer], Smoking Cessation Medications and DC Order Prescriptions: New oxycodone 5 mg tablet 5 mg PO Q6H PRN (Reason: pain, severe) Qty: 20 RF: 0 tramadol 50 mg tablet 50 mg PO Q6H PRN (Reason: pain, moderate) Qty: 20 RF: 0 Continued atorvastatin 20 mg tablet 20 mg PO QPM RF: 0 warfarin 5 mg tablet 5 mg PO QPM RF: 0 lamotrigine [Lamictal] 100 mg tablet 100 mg PO HS RF: 0 lamotrigine [Lamictal] 150 mg tablet 150 mg PO QAM RF: 0 Spiriva with HandiHaler 18 mcg capsule, w/inhalation device 1 cap INH QPM RF: 0 albuterol sulfate 90 mcg/actuation aerosol powdr breath activated 2 puffs INH Q4H PRN (Reason: shortness of breath or wheezing) RF: 0 sildenafil [Viagra] 50 mg tablet 50 mg PO DAILY PRN (Reason: Sexual Activity) RF: 0 trazodone 50 mg tablet 50 mg PO HS PRN (Reason: Sleep) RF: 0 montelukast [Singulair] 10 mg tablet 10 mg PO QPM Qty: 30 RF: 5 levalbuterol HCl 1.25 mg/3 mL solution for nebulization 1.25 mg INH Q4H PRN (Reason: shortness of breath or wheezing) Qty: 100 RF: 5 buspirone 10 mg tablet 10 mg PO TID Qty: 90 RF: 2 epinephrine 0.3 mg/0.3 mL auto-injector 0.3 mg IM Q10M PRN (Reason: anaphylaxis) Qty: 2 RF: 5 lamotrigine [Lamictal] 25 mg tablet 25 mg PO HS RF: 0 vitamin B complex Tablet 1 tab PO QAM RF: 0 cholecalciferol (vitamin D3) [Vitamin D3] 10 mcg (400 unit) Tablet 1,600 unit PO QAM RF: 0 diclofenac sodium 1 % Gel 2 g TOPICAL QID PRN (Reason: Pain) RF: 0 B.breve-L.acid-L.rham-S.thermo 3 billion cell Tablet,Chewable 0.5 tab PO QAM RF: 0 nadolol 40 mg tablet 40 mg PO QDL RF: 0 valsartan-hydrochlorothiazide [Diovan HCT] 320-25 mg tablet 1 tab PO QAM RF: 0 Discharge Orders: Discharge Order (Routine); Ordered 03/16/21 Ordered By: Aj Bliss Admission Data Admit Date/Time: 03/15/21 09:25 Attending Provider: Aj Bliss Admit Provider: Aj Bliss Primary Care Provider: Kimberlee Tyler Other Providers: Santosh Light
[2021-03-16] MEDS ORDERED: dexAMETHasone 6 MG in SYRINGE 0 ML IV SCH (09:00)
[2021-03-16] MEDS ORDERED: ADVANCED PROBIOTIC 1250 MG CAPSULE PO SCH (09:00)
[2021-03-16] MEDS ORDERED: VITAMIN B COMPLEX TAB PO SCH (09:00)
[2021-03-16] MEDS ORDERED: hydroCHLOROthiazide 25 MG TAB PO SCH (09:00)
[2021-03-16] MEDS ORDERED: lamoTRIgine 100 MG TAB PO SCH (09:00)
[2021-03-16] MEDS ORDERED: CHOLECALCIFEROL 400 UNITS 10 MCG TAB PO SCH (09:00)
[2021-03-16] MEDS ORDERED: VALSARTAN 80 MG TAB PO SCH (09:00)
[2021-03-16] MEDS ORDERED: lamoTRIgine 25 MG TAB PO SCH (09:00)
[2021-03-16 09:13] VITALS: PULSE 64
[2021-03-16 09:32] VITALS: BP 144/68; TEMP 98.1; O2SAT 97
== END 2021-03-16 11:30 | disposition home or self-care (01) ==
LOC: ASU 06:08 → INTOOBSV 09:25 → 3E 09:25
DX: Z90.5 Acquired absence of kidney; M47.22 Other spondylosis with radiculopathy, cervical region; Z85.828 Personal history of other malignant neoplasm of skin; J43.8 Other emphysema; E78.5 Hyperlipidemia, unspecified; Z91.040 Latex allergy status; Z79.899 Other long term (current) drug therapy; Z86.16 Personal history of COVID-19; G40.909 Epilepsy, unspecified, not intractable, without status epilepticus; I48.0 Paroxysmal atrial fibrillation; Z87.891 Personal history of nicotine dependence; I10 Essential (primary) hypertension; Z88.1 Allergy status to other antibiotic agents; Z88.8 Allergy status to other drugs, medicaments and biological substances